=== PATIENT | male | born 1995 | race African-American/Black ===

== ENCOUNTER 2024-07-04 16:31 | Emergency (ER) | payer BC, SELFPAY ==
[2024-07-04 16:36] VITALS: BP 140/79
--- NOTE | 2024-07-04 17:08 | ED.GENMED ---
History of Present Illness
General
Chief Complaint: Dizziness
Source: patient
Exam Limitations: none
Time Seen by Provider: 07/04/24 16:52
Nursing documentation reviewed up to this point in time: agreed with
History of Present Illness
History of Present Illness:
Patient to ED wt complaint of headache and dizzines. States he noticed right jaw clicking 2 weeks ago. Today reports headache and dizziness. Denies fever/chills, recent illness. No history of trauma. Brought self to ED for eval.
Past History
Past History
ED Past Medical History: None
ED Past Surgical History: Orthopedic (eye surgery)
Review of Systems
Review of Systems
Allergies reviewed?: Yes
All Other Systems: ROS reviewed and negative except as documented in HPI and ROS
Constitutional: Reports no symptoms
EENT: Reports no symptoms
Respiratory: Reports no symptoms
Cardiac: Reports no symptoms
ABD/GI: Reports no symptoms
Musculoskeletal: Reports other (right jaw clicking)
Skin: Reports no symptoms
Neurological: Reports dizzy and headache
Psychiatric: Reports no symptoms
Phy Exam
General Physical Exam
General Presentation: well appearing and no apparent distress
General age: appears stated age
General Skin: warm and dry
General Habitus: normal
General Mental: alert
ENT Exam
ENT Exam: EOMI, TM's normal, neck supple and normocephalic
Eye Exam
Eye Exam: PERRL, EOMI, conjunctiva normal and globe normal
Neurological Exam
Neurological Exam: alert, oriented x3, CN II-XII intact, no motor deficits, no sensory deficits and speech normal
Musculoskeletal Exam
Musculoskeletal Exam: full ROM and neuro vasc intact
Skin Exam
Skin Exam: normal color, warm/dry and no rash
Psychiatric Exam
Psychiatric Exam: normal mood/affect
Course
Orders/Labs/Results
Orders:
Orders
07/04/24 16:38
Electrocardiogram (*1) Urgent
Reason for Study: Vertigo / Dizzy
EKG- Treatment ONCE
07/04/24 17:07
CT Head W/o Iv Contrast Urgent
Comment:
Reason For Exam: pain, dizziness
TMJ Bilat Open/Close [CR Tempomandib Jts Kevyn Open/cl] Urgent
Comment:
Reason For Exam: right pain
07/04/24 18:48
Acetaminophen [Tylenol] 1,000 mg PO NOW STA
Meclizine [Antivert] 25 mg PO NOW STA
Vital Signs
Initial and Last Documented VS:
Initial Vital Signs
Temp Pulse Resp BP Pulse Ox
99.5 F 75 18 140/79 100
07/04/24 16:36 07/04/24 16:36 07/04/24 16:36 07/04/24 16:36 07/04/24 16:36
Last Documented Vital Signs
Temp Pulse Resp BP Pulse Ox
99 F 68 16 116/61 100
07/04/24 20:03 07/04/24 20:03 07/04/24 20:03 07/04/24 20:03 07/04/24 20:03
*Radiology
Radiology exam reviewed: radiology read reviewed
*Pulse Oximetry
Patient hypoxic: no
*Critical Care Note
Total Time (30-74mins, 75-104mins- exclusive of procedures): Not Applicable
ED Attending Note
-
Portions of this chart may have been created with voice recognition software.� Occasional wrong word or��sound alike� substitutions may have occurred due to the inherent limitations of voice recognition software.
Discharge Plan
Departure
Patient Disposition: Home (Routine Discharge)
Date of Disposition: 07/04/24
Time of Disposition: 18:48
Patient with high blood pressure during this ER visit?: No
Condition: Good
Discharge Problem:
Dizziness
Instructions: Dizziness
Prescriptions:
New
meclizine 25 mg tablet
25 mg PO TID PRN (Reason: dizziness) Qty: 20 0RF
Referrals:
Devang Felix MD [Family Provider] - Follow up in 2-3 days
Stand Alone Forms: Return to Work
Interventions
Interventions:
*Risk Screen - Suicide Last Done: 07/04/24 16:36
*General Assessment Last Done: 07/04/24 16:36
*Neglect/Abuse Screening Last Done: 07/04/24 16:36
ED- Fall Risk Assessment Last Done: 07/04/24 17:48
*ED COVID-19 Vaccine History Last Done: 07/04/24 17:46
*Nursing Disposition Last Done: 07/04/24 20:03
ED- Neurological Assessment Last Done: 07/04/24 17:48
ED- Cardiac Assessment Last Done: 07/04/24 17:48
ED Swallowing Screen Last Done: 07/04/24 20:02
Discharge Date and Time
Discharge Date/Time: 07/04/24 20:04
Print Language: AZERI
[2024-07-04 17:32] VITALS: BP 119/59
[2024-07-04 17:43] VITALS: BMI 30.6
[2024-07-04 18:00] VITALS: BP 113/70
[2024-07-04 18:31] VITALS: BP 106/58
[2024-07-04 18:32] VITALS: BP 112/67
[2024-07-04] MEDS: TYLENOL 1000 MG PO (19:28)
[2024-07-04] MEDS: ANTIVERT 25 MG PO (19:28)
[2024-07-04 20:03] VITALS: BP 116/61
== END 2024-07-04 20:04 | disposition home or self-care (01) ==
LOC: EMR 16:31
PROVIDERS: EMERGENCY PHYSICIAN Emergency Medicine; FAMILY PHYSICIAN Family Medicine
DX: R42 Dizziness and giddiness (principal); R51.9 Headache, unspecified
CPT/HCPCS: 99285; 70330; 70450; 93005